=== PATIENT | female | born 2005 | race Caucasian/White ===

== ENCOUNTER 2024-01-13 11:32 | Outpatient (CLI) | payer OTHER | END 2024-01-13 11:33 | disposition home or self-care (01) | LOC: CSHRAD 11:32 | PROVIDERS: ATTEND Internal Medicine Rheumatology | DX: R06.02 Shortness of breath (principal) | CPT/HCPCS: 71046 ==

== ENCOUNTER 2024-01-28 13:18 | Outpatient (CLI) | payer OTHER | END 2024-01-28 13:19 | disposition home or self-care (01) | LOC: CSHRAD 13:18 | PROVIDERS: ATTEND Internal Medicine Rheumatology | DX: M46.1 Sacroiliitis, not elsewhere classified (principal) | CPT/HCPCS: 72202 ==